=== PATIENT | female | born 1990 | race American Indian/Alaskan Native ===

== ENCOUNTER 2017-03-13 17:07 | Outpatient (CLI) | payer MEDICAID ==
[2017-03-13] MEDS ORDERED: LACTATED RINGERS 1,000 ML ONE (19:01)
[2017-03-13 21:32] VITALS: BP 107/77
== END 2017-03-13 20:34 | disposition home or self-care (01) ==
LOC: TRG 17:07
PROVIDERS: ATTEND Obstetrics & Gynecology
DX: O47.03 False labor before 37 completed weeks of gestation, third trimester (principal); Z3A.36 36 weeks gestation of pregnancy
CPT/HCPCS: 96360; J7120

== ENCOUNTER 2019-02-14 10:40 | Emergency (ER) | payer MEDICAID ==
[2019-02-14 11:38] LABS: Basophils % (Auto) 0.7 % (0.0-1.8); Eosinophils # (Auto) 0.1 K/mm3 (0.0-0.4); Eosinophils % (Auto) 1.3 % (0.0-4.3); Hematocrit 37.4 % (30.3-42.9); Hemoglobin 12.9 gm/dl (10.1-14.3); Lymphocytes # (Auto) 1.4 K/mm3 (1.2-5.4); Mean Corpuscular HGB Conc 34 % (30-34); Mean Corpuscular Volume 76 fl (79-97); Monocytes # (Auto) 0.4 K/mm3 (0.0-0.8); Monocytes % (Auto) 9.6 % (0.0-7.3); Platelet Count 192 K/mm3 (140-440); Red Blood Count 4.92 M/mm3 (3.65-5.03); Red Cell Distribution Width 15.4 % (13.2-15.2)
[2019-02-14 11:49] LABS: BUN/Creatinine Ratio 18; Blood Urea Nitrogen 11 mg/dL (7-17); Calcium 9.7 mg/dL (8.4-10.2); Hemolysis Index 3
[2019-02-14] MEDS ORDERED: NACL 0.9% 1000 ML 1,000 ML IV ONE (11:52)
[2019-02-14] MEDS ORDERED: ATIVAN IV ONE (11:52)
--- NOTE | 2019-02-14 11:52 | Emergency Department Report ---
ED General Adult HPI - General Chief complaint: Seizure Stated complaint: SEIZURE Time Seen by Provider: 02/14/19 11:22 Source: patient Mode of arrival: Stretcher Limitations: No Limitations - History of Present Illness Initial comments: 28-year-old female who states that she had a seizure this morning and fell. She complains of generalized soreness on the right side has some tingling at triage. However she is not complaining of either of these things to me. She states "I have a seizure every year". She states that perhaps these seizures occur when she stops drinking alcohol. However, she states later that she only drinks one or 2 glasses of wine perhaps 3 days a week. She states that this is the first time she has ever come to the emergency department to be evaluated for these "seizures" although they have been occurring for years. She has never seen a neurologist. She has never had a prior CT of the head. -: Sudden Worsens with: none Associated Symptoms: denies other symptoms (some soreness as above indicated but otherwise not) Treatments Prior to Arrival: none - Related Data Previous Rx's Medication Instructions Recorded Last Taken Type levETIRAcetam [Keppra TAB] 500 mg PO BID #60 tablet 02/14/19 Unknown Rx Allergies Allergy/AdvReac Type Severity Reaction Status Date / Time No Known Allergies Allergy Unverified 03/13/17 18:10 ED Review of Systems ROS: Stated complaint: SEIZURE Other details as noted in HPI Constitutional: denies: chills, fever Eyes: denies: eye pain, eye discharge, vision change ENT: denies: ear pain, throat pain Respiratory: denies: cough, shortness of breath, wheezing Cardiovascular: denies: chest pain, palpitations Endocrine: no symptoms reported Gastrointestinal: denies: abdominal pain, nausea, diarrhea Genitourinary: denies: urgency, dysuria, discharge Musculoskeletal: denies: back pain, joint swelling, arthralgia Skin: denies: rash, lesions Neurological: denies: headache, weakness, paresthesias Psychiatric: denies: anxiety, depression Hematological/Lymphatic: denies: easy bleeding, easy bruising ED Past Medical Hx - Past Medical History Previous Medical History?: Yes Hx Hypertension: No Hx Diabetes: No Hx Deep Vein Thrombosis: No Hx Renal Disease: No Hx Sickle Cell Disease: No Hx Seizures: Yes Hx Asthma: No Hx HIV: No - Surgical History Past Surgical History?: Yes Additional Surgical History: hernia - Social History Smoking Status: Never Smoker - Medications Home Medications: Home Medications Medication Instructions Recorded Confirmed Last Taken Type levETIRAcetam [Keppra TAB] 500 mg PO BID #60 tablet 02/14/19 Unknown Rx ED Physical Exam - General Limitations: No Limitations General appearance: alert, in no apparent distress - Head Head exam: Present: atraumatic, normocephalic - Eye Eye exam: Present: normal appearance. Absent: scleral icterus - ENT ENT exam: Present: normal orophraynx, mucous membranes moist - Neck Neck exam: Present: normal inspection. Absent: tenderness, meningismus - Respiratory Respiratory exam: Present: normal lung sounds bilaterally. Absent: respiratory distress - Cardiovascular Cardiovascular Exam: Present: regular rate, normal rhythm. Absent: systolic murmur, diastolic murmur, rubs, gallop - GI/Abdominal GI/Abdominal exam: Present: soft, normal bowel sounds. Absent: distended, tenderness, guarding, rebound, rigid - Extremities Exam Extremities exam: Present: normal inspection - Back Exam Back exam: Present: normal inspection - Neurological Exam Neurological exam: Present: alert, oriented X3, CN II-XII intact. Absent: motor sensory deficit - Psychiatric Psychiatric exam: Present: normal affect, normal mood - Skin Skin exam: Present: warm, dry, intact, normal color. Absent: rash ED Course Vital Signs 02/14/19 02/14/19 11:00 14:04 Temperature 98.2 F Pulse Rate 76 67 Respiratory 18 18 Rate Blood Pressure 120/78 Blood Pressure 124/86 145/71 [Left] O2 Sat by Pulse 98 99 Oximetry ED Medical Decision Making - Lab Data Result diagrams: 02/14/19 11:24 02/14/19 11:24 Laboratory Results - last 24 hr 02/14/19 02/14/19 11:24 11:24 WBC 4.3 L RBC 4.92 Hgb 12.9 Hct 37.4 MCV 76 L MCH 26 L MCHC 34 RDW 15.4 H Plt Count 192 Lymph % (Auto) 34.0 [place] % (Auto) 9.6 H Eos % (Auto) 1.3 Baso % (Auto) 0.7 Lymph # 1.4 [place] # 0.4 Eos # 0.1 Baso # 0.0 Seg Neutrophils % 54.4 Seg Neutrophils # 2.3 Sodium 139 Potassium 4.2 Chloride 103.5 Carbon Dioxide 26 Anion Gap 14 BUN 11 Creatinine 0.6 L Estimated GFR > 60 BUN/Creatinine Ratio 18 Glucose 96 Calcium 9.7 Laboratory Results - last 24 hr 02/14/19 02/14/19 11:24 11:24 WBC 4.3 L RBC 4.92 Hgb 12.9 Hct 37.4 MCV 76 L MCH 26 L MCHC 34 RDW 15.4 H Plt Count 192 Lymph % (Auto) 34.0 [place] % (Auto) 9.6 H Eos % (Auto) 1.3 Baso % (Auto) 0.7 Lymph # 1.4 [place] # 0.4 Eos # 0.1 Baso # 0.0 Seg Neutrophils % 54.4 Seg Neutrophils # 2.3 Sodium 139 Potassium 4.2 Chloride 103.5 Carbon Dioxide 26 Anion Gap 14 BUN 11 Creatinine 0.6 L Estimated GFR > 60 BUN/Creatinine Ratio 18 Glucose 96 Calcium 9.7 - Radiology Data Radiology results: image reviewed No acute process seen. Radiology interpretation pending. Critical care attestation.: If time is entered above; I have spent that time in minutes in the direct care of this critically ill patient, excluding procedure time. ED Disposition Clinical Impression: Generalized seizure Disposition: DC-01 TO HOME OR SELFCARE Is pt being admited?: No Does the pt Need Aspirin: No Condition: Stable Instructions: Recurrent Seizures Adult (ED) Additional Instructions: Do not drive or operate machinery until cleared by neurologist. Rx as directed. Prescriptions: levETIRAcetam [Keppra TAB] 500 mg PO BID #60 tablet [facility]: [facility] [Primary Care Provider] - 3-5 Days ABHIJIT SANDOVAL MD [Staff Physician] - 3-5 Days DONI WELSH MD [Referring] - 3-5 Days Time of Disposition: 16:08
[2019-02-14 15:09] LABS: Bilirubin,Urine NEG (Negative); Blood,Urine NEG (Negative); Color,Urine Yellow (Yellow); HCG Qualitative,Urine Negative (Negative); Mucus,Urine 3+ /HPF; Protein,Urine <15 mg/dL mg/dL (Negative); Urobilinogen,Urine < 2.0 mg/dL (<2.0)
[2019-02-14 15:16] LABS: Amphetamine Screen,Urine PRESUMPTIVE NEGATIVE; Benzodiazepines Screen,Urine PRESUMPTIVE NEGATIVE; Cocaine Screen,Urine PRESUMPTIVE NEGATIVE; Methadone Screen,Urine PRESUMPTIVE NEGATIVE; Opiate Screen,Urine PRESUMPTIVE NEGATIVE
[2019-02-14 15:32] LABS: Cannabinoid Screen,Urine PRESUMPTIVE POSITIVE
--- NOTE | 2019-02-14 16:15 | Cat Scan Report ---
PROCEDURE: CT HEAD/BRAIN WO CON TECHNIQUE: Computerized tomography of the head was performed without contrast material. CT DOSE LENGTH PRODUCT: 920.5 mGycm HISTORY: Seizure COMPARISONS: None . FINDINGS: Skull and scalp: Normal . Paranasal sinuses: Normal . Ventricles and subarachnoid spaces: Normal . Cerebrum: No evidence of hemorrhage, acute infarction or mass . Cerebellum and brainstem: No evidence of hemorrhage, acute infarction or mass . Vasculature: Normal . Other: None . ASPECTS: 10 IMPRESSION: No acute intracranial abnormality. This document is electronically signed by Janel Lopes MD., February 14 2019 04:13:10 PM ET
[2019-02-14 16:56] VITALS: BP 133/73
== END 2019-02-14 16:44 | disposition home or self-care (01) ==
LOC: ED 10:40
DX: R56.9 Unspecified convulsions (principal)
CPT/HCPCS: 36415; 70450; 80048; 80307; 81001; 81025; 85025; 87086; 96374; 99284; J2060; J7030